=== PATIENT | male | born 1945 | race Caucasian/White ===

== ENCOUNTER 2023-04-10 08:40 | Outpatient (RCR) | payer MEDICARE, OTHER | END 2023-04-12 | disposition home or self-care (01) | LOC: ONC 08:40 | PROVIDERS: ATTEND Radiology Radiation Oncology | DX: Z51.0 Encounter for antineoplastic radiation therapy (principal); C61 Malignant neoplasm of prostate; I10 Essential (primary) hypertension | CPT/HCPCS: 77300; 77301; 77334; 77338; 99205 ==

== ENCOUNTER → 2023-05-13 | Outpatient (RCR) | payer MEDICARE, OTHER ==
[2023-05-07 08:50] LABS: BILIRUBIN,URINE NEGATIVE (NEGATIVE); CLARITY,URINE CLEAR; COLOR,URINE YELLOW; GLUCOSE, URINE (UA) NEGATIVE (NEGATIVE); KETONES,URINE NEGATIVE (NEGATIVE); LEUKOCYTE ESTERASE ,URINE TRACE (NEGATIVE); NITRITE,URINE NEGATIVE (NEGATIVE); PROTEIN,URINE NEGATIVE (NEGATIVE)
[2023-05-07 08:58] LABS: BACTERIA,URINE TRACE /HPF; WBC,URINE RARE /HPF
== END | disposition home or self-care (01) ==
LOC: ONC 04-17 10:40
PROVIDERS: ATTEND Radiology Radiation Oncology
DX: Z51.0 Encounter for antineoplastic radiation therapy (principal); C61 Malignant neoplasm of prostate; I10 Essential (primary) hypertension
CPT/HCPCS: 77336; 77385; 81000

== ENCOUNTER 2023-05-29 08:14 | Outpatient (RCR) | payer MEDICARE, OTHER | END 2023-06-13 | disposition home or self-care (01) | LOC: ONC 08:14 | PROVIDERS: ATTEND Radiology Radiation Oncology | DX: Z51.0 Encounter for antineoplastic radiation therapy (principal); C61 Malignant neoplasm of prostate; I10 Essential (primary) hypertension | CPT/HCPCS: 77385; G0463; 77336 ==